=== PATIENT | male | born 1955 | race Caucasian/White ===

== ENCOUNTER 2016-06-06 15:54 | Emergency (ER) | payer OTHER ==
[~2016-06-06] VITALS: Ht 177.8 cm; Wt 83.9 kg
[~2016-06-06 15:54] MED LIST: ATIVAN1 MG PO; LORATADINE10 M2 PO; MOTRIN800 MG PO; NORCO 5/325 MG1 TAB PO; PROZAC20 M1 PO; PROZAC20 MG PO; VENTOLIN H0.09 MG/Ac IH; WELLBUTRIN75 M1 PO; ZESTRIL20 MG PO
[2016-06-06 16:22] VITALS: BP 137/63
[2016-06-06] MEDS ORDERED: NORVASC10 MG PO (16:26)
--- NOTE | 2016-06-06 16:29 | NUR ---
Patient taken to bed 05 via wheelchair per tech.
--- NOTE | 2016-06-06 16:45 | NUR ---
Dr. Ha evaluating patient at bedside.
--- NOTE | 2016-06-06 16:50 | NUR ---
PATIENT PRESENTS TO ED WITH POSSIBLE SEIZURES STARTING TODAY. PT STATES HE SHAKES UNCONROLLABLY; DENIES N/V/D; SKIN IS PINK/WARM/DRY; AAOX4 WITH EVEN AND STEADY GAIT; LUNGS CLEAR BL; HR EVEN AND REGULAR; PT DENIES ANY FEVER, CP, SOB, OR COUGH AT THIS TIME; PATIENT STATES PAIN OF 4/10 AT THIS TIME; VSS; PATIENT POSITIONED FOR COMFORT; HOB ELEVATED; BEDRAILS UP X2; BED DOWN. ER MD MADE AWARE OF PT STATUS.
--- NOTE | 2016-06-06 17:04 | NUR ---
CODYO, COOPERATIVE TAKEN TO CT BY SONIA BOURNE
--- NOTE | 2016-06-06 17:38 | NUR ---
DR NORMAN UPDATING THE PT
[2016-06-06 17:50] VITALS: BP 113/70
--- NOTE | 2016-06-06 17:50 | NUR ---
Patient discharged with v/s stable. Written and verbal after care instructions given and explained. Patient verbalized understanding. Ambulatory with steady gait. All questions addressed prior to discharge. Advised to follow up with PMD.
== END 2016-06-06 17:50 | disposition home or self-care (01) ==
LOC: MED 15:54
DX: G25.2 Other specified forms of tremor (principal); I10 Essential (primary) hypertension; J45.909 Unspecified asthma, uncomplicated; Z86.73 Personal history of transient ischemic attack (TIA), and cerebral infarction without residual deficits; Z91.018 Allergy to other foods; Z79.899 Other long term (current) drug therapy

== ENCOUNTER 2016-08-20 16:31 | Emergency (ER) | payer OTHER ==
[~2016-08-20] VITALS: Ht 177.8 cm; Wt 80.7 kg
[~2016-08-20 16:31] MED LIST changes: +NORVASC10 MG PO
[2016-08-20 17:49] VITALS: BP 103/68
[2016-08-20] MEDS ORDERED: KEPPRA500 MG PO (17:57)
[2016-08-20] MEDS ORDERED: DONEPEZIL HCL10 MG PO (17:57)
--- NOTE | 2016-08-20 18:03 | NUR ---
EKG REVIEWED BY DR. PORTILLO. OK TO WAIT IN THE LOBBY.NO DISTRESS
--- NOTE | 2016-08-20 18:54 | NUR ---
Patient to bed 05.
--- NOTE | 2016-08-20 19:00 | NUR ---
PT PRESENT TO ER WITH C/O BODY ACHE/LEG PAIN PAIN. CHEST PAIN TO LT. ARM DURING TRIAGE/STABBING LASTED FEW MINUTES. HX: CVA,GI PROB, EARLY ALZHEIMER,MINI STROKES; DENIES N/V/D; SKIN IS PINK/WARM/DRY; AAOX4 WITH EVEN AND STEADY GAIT; LUNGS CLEAR BL; HR EVEN AND REGULAR; PT DENIES ANY FEVER, CP, OR SOB AT THIS TIME; PATIENT STATES PAIN OF 4/10 AT THIS TIME; VSS; PATIENT POSITIONED FOR COMFORT; HOB ELEVATED; BEDRAILS UP X2; BED DOWN. ER MD MADE AWARE OF PT STATUS.
--- NOTE | 2016-08-20 19:08 | NUR ---
Sylvia strange in [facility] - 08/20/16 at 1912 by HANG REPORT GIVEN TO MARIA VICTORIA GUAJARDO
--- NOTE | 2016-08-20 19:16 | NUR ---
REPORT GIVEN TO MARIA VICTORIA SHAW
--- NOTE | 2016-08-20 19:20 | NUR ---
CAME AT BEDSIDE TO EVALUATE PATIENT.
--- NOTE | 2016-08-20 19:30 | NUR ---
ASSUMED CARE. RECEIVED ALERT, NOT IN ACUTE DISTRESS. VERBALIZED GENERALIZED BODY ACHE AND CHEST PAIN DESCRIBED SHARP. ALSO NOTED TO BE COUGHING BUT IS CHRONIC PER PATIENT. PA AT BEDSIDE EVALUATING PT. OTHERWISE VS STABLE, WILL CONTINUE TO MONITOR.
[2016-08-20] MEDS ORDERED: NACL 0.9% 1,000 ML IV ONE (19:40)
--- NOTE | 2016-08-20 19:52 | NUR ---
GAUGE 18 IV LINE ESTABLISHED TO THE RIGHT HAND. BLOOD ALSO DRAWN AND SENT TO THE LAB.
[2016-08-20] MEDS ORDERED: ALBUTEROL SULFATE/IPRATROPIU 3 ML SOL IH ONE (19:55)
--- NOTE | 2016-08-20 19:57 | NUR ---
IV FLUID NS 1 LITER @ 100 ML/HR.
--- NOTE | 2016-08-20 20:12 | NUR ---
PORTABLE CXR DONE.
--- NOTE | 2016-08-20 20:17 | NUR ---
BREATHING TREATMENT GIVEN BY RT.
--- NOTE | 2016-08-20 20:50 | NUR ---
MD BACK AT BEDSIDE TO RE-EVALUATE AND DISCUSS PLAN OF CARE WITH PT/FAMILY. PT. FOR DISCHARGE HOME.
--- NOTE | 2016-08-20 21:02 | NUR ---
Patient discharged with v/s stable. Written and verbal after care instructions given and explained. Patient alert, oriented and verbalized understanding of instructions. Ambulatory with steady gait. All questions addressed prior to discharge. ID band removed. Patient advised to follow up with PMD. Rx of AUGMENTIN,XANAX,ALBUTEROL INHALER given. Patient educated on indication of medication including possible reaction and side effects. Opportunity to ask questions provided and answered.
[2016-08-20 21:08] VITALS: BP 122/75
== END 2016-08-20 21:02 | disposition home or self-care (01) ==
LOC: MED 16:31
DX: J18.9 Pneumonia, unspecified organism (principal); H61.23 Impacted cerumen, bilateral; Z88.8 Allergy status to other drugs, medicaments and biological substances; J45.909 Unspecified asthma, uncomplicated; Z86.73 Personal history of transient ischemic attack (TIA), and cerebral infarction without residual deficits; I10 Essential (primary) hypertension
CPT/HCPCS: 36415; 71010; 80053; 85025; 85610; 85730; 94640; 96360; 99285; J7030; J7620

== ENCOUNTER 2016-12-04 13:50 | Outpatient (CLI) | payer OTHER ==
[~2016-12-04 13:50] MED LIST changes: +ALBU0.0912 IH; +AMLO10TA PO; -ATIVAN1 MG PO; +BUPR75TA PO; +DONE10TA91 PO; +FLUO-387 PO; +HYDR-4446 PO; +IBUP-974 PO; +KEP500 PO; +LORA10OD44 PO; -LORATADINE10 M2 PO; -MOTRIN800 MG PO; -NORCO 5/325 MG1 TAB PO; -NORVASC10 MG PO; -PROZAC20 M1 PO; -PROZAC20 MG PO; -VENTOLIN H0.09 MG/Ac IH; -WELLBUTRIN75 M1 PO; -ZESTRIL20 MG PO
[2016-12-04 14:58] LABS: BASOPHILS # (AUTO) 0.1 K/uL (0.00-0.22); EOSINOPHILS # (AUTO) 0.5 K/uL (0-0.4); HEMATOCRIT 43.5 % (36-52); HEMOGLOBIN 14.8 g/dL (12.0-18.0); LYMPHOCYTES # (AUTO) 0.7 K/uL (2.0-11.5); MEAN CORPUSCULAR HEMOGLOBIN 30 pg (27-31); MEAN CORPUSCULAR HGB CONC 34 g/dL (33-37); MEAN CORPUSCULAR VOLUME 88 fL (80-94); MONOCYTES # (AUTO) 0.5 K/uL (0.8-1.0); NEUTROPHILS # (AUTO) 3.3 K/uL (1.8-7.7); PLATELET COUNT (AUTO) 139 K/uL (140-450); RED BLOOD CELL COUNT(AUTO) 4.94 MIL/uL (4.20-6.10); RED CELL DISTRIBUTION WIDTH 11.6 % (11.6-13.7); WHITE BLOOD COUNT (AUTO) 5.1 K/uL (4.8-10.8)
[2016-12-04 15:16] LABS: ANION GAP 11.5 (8-16); CALCIUM 8.7 mg/dL (8.5-10.1); CARBON DIOXIDE 27.3 mmol/L (21-32); CREATININE 0.8 mg/dL (0.7-1.3); POTASSIUM 3.8 mmol/L (3.5-5.1)
[2016-12-04 15:17] LABS: PARTIAL THROMBOPLASTIN TIME 26.4 secs (22-35.6); PROTHROMBIN TIME 10.6 secs (10.8-13.4)
== END 2016-12-04 19:23 | disposition home or self-care (01) ==
LOC: MRD 13:50
PROVIDERS: ATTEND Family Medicine
DX: J44.9 Chronic obstructive pulmonary disease, unspecified (principal)
CPT/HCPCS: 36415; 71010; 80048; 85025; 85610; 85730; 93005

== ENCOUNTER 2017-01-04 16:02 | Inpatient (IN) | payer OTHER ==
[~2017-01-04] VITALS: Ht 177.8 cm; Wt 78.9 kg
[~2017-01-04 16:02] MED LIST changes: +ACET-8386 PO; -HYDR-4446 PO
[2017-01-04 16:06] VITALS: BP 155/85
[2017-01-04] MEDS ORDERED: ASPIRIN 325 MG TAB PO ONE (16:20)
[2017-01-04 16:59] LABS: BASOPHILS # (AUTO) 0.1 K/uL (0.00-0.22); BASOPHILS % (AUTO) 0.7 % (0.0-2.0); EOSINOPHILS # (AUTO) 0.4 K/uL (0-0.4); EOSINOPHILS % (AUTO) 2.4 % (0.0-4.0); HEMATOCRIT 48.6 % (36-52); HEMOGLOBIN 15.8 g/dL (12.0-18.0); LYMPHOCYTES # (AUTO) 0.4 K/uL (2.0-11.5); LYMPHOCYTES % (AUTO) 2.5 % (20.5-51.1); MEAN CORPUSCULAR HEMOGLOBIN 29 pg (27-31); MEAN CORPUSCULAR HGB CONC 33 g/dL (33-37); MEAN CORPUSCULAR VOLUME 90 fL (80-94); MONOCYTES # (AUTO) 0.1 K/uL (0.8-1.0); MONOCYTES % (AUTO) 0.6 % (1.7-9.3); NEUTROPHILS # (AUTO) 15.3 K/uL (1.8-7.7); NEUTROPHILS % (AUTO) 93.8 % (42.2-75.2); PLATELET COUNT (AUTO) 161 K/uL (140-450); RED BLOOD CELL COUNT(AUTO) 5.37 MIL/uL (4.20-6.10); WHITE BLOOD COUNT (AUTO) 16.3 K/uL (4.8-10.8)
[2017-01-04 17:15] LABS: ANION GAP 9.9 (8-16); CARBON DIOXIDE 27.9 mmol/L (21-32); CREATININE 0.9 mg/dL (0.7-1.3); POTASSIUM 3.8 mmol/L (3.5-5.1)
[2017-01-04 17:21] LABS: ALBUMIN 3.7 g/dL (3.4-5.0); TOTAL BILIRUBIN 0.6 mg/dL (0.0-1.0)
[2017-01-04 17:23] LABS: PROTHROMBIN TIME 10.5 secs (10.8-13.4)
[2017-01-04] MEDS ORDERED: HYDROmorphone 1 MG/ML AMP IM ONE (17:30)
[2017-01-04 18:21] LABS: APPEARANCE,URINE CLEAR (CLEAR); BILIRUBIN,URINE NEGATIVE (NEGATIVE); BLOOD, URINE NEGATIVE (NEGATIVE); COLOR,URINE YELLOW (YELLOW); LEUKOCYTE ESTERASE ,URINE NEGATIVE (NEGATIVE); NITRITE, URINE NEGATIVE (NEGATIVE); UGLUCOSE NEGATIVE (NEGATIVE)
[2017-01-04] MEDS ORDERED: ONDANSETRON 4 MG/2 ML VIAL IVP PRN (18:40)
[2017-01-04] MEDS ORDERED: LORazepam 2 MG/ML VIAL IVP ONE (18:45)
[2017-01-04 19:12] VITALS: BP 159/96
[2017-01-04] MEDS ORDERED: CARVEDILOL 6.25 MG TAB PO SCH (19:20)
[2017-01-04] MEDS: MORPHINE SULFATE 2 MG/ML SYR IVP PRN (21:02)
[2017-01-04] MEDS ORDERED: cloNIDine 0.1 MG TAB PO PRN (21:15)
[2017-01-04] MEDS ORDERED: LABETALOL 100 MG/20 ML VIAL IV PRN (21:30)
[2017-01-04] MEDS ORDERED: LABETALOL 100 MG/20 ML VIAL ONE (21:52)
[2017-01-04] MEDS: TEMAZEPAM 15 MG CAP PO PRN (23:10)
[2017-01-04] MEDS: MORPHINE SULFATE 4 MG/ML SYR IVP PRN (23:29)
[2017-01-05] VITALS: BP 147/96
[2017-01-05 02:17] LABS: CREATINE KINASE MB 0.4 ng/mL (0-3.6)
[2017-01-05] MEDS: MORPHINE SULFATE 4 MG/ML SYR IVP PRN ×5 (03:45→21:30)
[2017-01-05 04:00] VITALS: BP 141/90
[2017-01-05 08:00] VITALS: BP 138/79
[2017-01-05] MEDS: CARVEDILOL 6.25 MG TAB PO SCH (08:50)
[2017-01-05] MEDS: ASPIRIN 81 MG TAB.CHEW PO SCH (08:57)
[2017-01-05 09:40] LABS: HEMATOCRIT 55.8 % (36-52); MEAN CORPUSCULAR HEMOGLOBIN 29 pg (27-31); MEAN CORPUSCULAR HGB CONC 32 g/dL (33-37); MEAN CORPUSCULAR VOLUME 91 fL (80-94); PLATELET COUNT (AUTO) 158 K/uL (140-450); RED BLOOD CELL COUNT(AUTO) 6.15 MIL/uL (4.20-6.10); RED CELL DISTRIBUTION WIDTH 12.2 % (11.6-13.7); WHITE BLOOD COUNT (AUTO) 29.5 K/uL (4.8-10.8)
[2017-01-05 10:05] LABS: LYMPHOCYTES % (MANUAL) 2 % (20-46); MONOCYTES % (MANUAL) 4 % (5-12)
[2017-01-05 10:09] LABS: ANION GAP 9.1 (8-16); CARBON DIOXIDE 30.9 mmol/L (21-32); TOTAL BILIRUBIN 1.2 mg/dL (0.0-1.0)
[2017-01-05 10:20] LABS: CREATININE 0.8 mg/dL (0.7-1.3)
[2017-01-05 10:21] LABS: CREATINE KINASE MB 0.3 ng/mL (0-3.6)
[2017-01-05 10:26] LABS: ALBUMIN 3.3 g/dL (3.4-5.0)
[2017-01-05 12:00] VITALS: BP 125/78
[2017-01-05] MEDS: LORazepam 0.5 MG TAB PO PRN (13:23)
[2017-01-05 16:31] VITALS: BP 130/81
[2017-01-05 20:00] VITALS: BP 134/81
[2017-01-05] MEDS: TEMAZEPAM 15 MG CAP PO PRN (22:31)
[2017-01-06] VITALS: BP 127/77
[2017-01-06] MEDS: MORPHINE SULFATE 2 MG/ML SYR IVP PRN (01:49)
[2017-01-06 04:00] VITALS: BP 130/86
[2017-01-06] MEDS: MORPHINE SULFATE 4 MG/ML SYR IVP PRN ×4 (06:26→20:10)
[2017-01-06 08:00] VITALS: BP 149/93
[2017-01-06] MEDS: ASPIRIN 81 MG TAB.CHEW PO SCH (08:16)
[2017-01-06] MEDS: CARVEDILOL 6.25 MG TAB PO SCH (08:24)
[2017-01-06 09:50] LABS: ALBUMIN 2.5 g/dL (3.4-5.0); ANION GAP 9.8 (8-16); CARBON DIOXIDE 29.2 mmol/L (21-32); CREATININE 0.8 mg/dL (0.7-1.3); TOTAL BILIRUBIN 1.2 mg/dL (0.0-1.0)
[2017-01-06 12:00] VITALS: BP 131/83
[2017-01-06 16:00] VITALS: BP 125/72
[2017-01-06 20:00] VITALS: BP 124/74
[2017-01-06] MEDS: LORazepam 0.5 MG TAB PO PRN (20:48)
[2017-01-07] VITALS: BP 124/79
[2017-01-07 04:00] VITALS: BP 132/96
[2017-01-07 06:51] LABS: HEMATOCRIT 44.9 % (36-52); HEMOGLOBIN 15.1 g/dL (12.0-18.0); MEAN CORPUSCULAR HEMOGLOBIN 30 pg (27-31); MEAN CORPUSCULAR HGB CONC 34 g/dL (33-37); MEAN CORPUSCULAR VOLUME 89 fL (80-94); PLATELET COUNT (AUTO) 99 K/uL (140-450); RED BLOOD CELL COUNT(AUTO) 5.06 MIL/uL (4.20-6.10); RED CELL DISTRIBUTION WIDTH 12.4 % (11.6-13.7); WHITE BLOOD COUNT (AUTO) 14.2 K/uL (4.8-10.8)
[2017-01-07 07:54] LABS: LYMPHOCYTES % (MANUAL) 2 % (20-46); MONOCYTES % (MANUAL) 3 % (5-12)
[2017-01-07 08:00] VITALS: BP 162/91
[2017-01-07] MEDS: ASPIRIN 81 MG TAB.CHEW PO SCH (08:46)
[2017-01-07] MEDS: CARVEDILOL 6.25 MG TAB PO SCH (08:46)
[2017-01-07] MEDS: MORPHINE SULFATE 4 MG/ML SYR IVP PRN ×2 (10:08→15:18)
[2017-01-07 12:00] VITALS: BP 132/85
[2017-01-07 16:00] VITALS: BP 150/85
[2017-01-07 19:58] VITALS: BP 125/76
[2017-01-07] MEDS: MORPHINE SULFATE 2 MG/ML SYR IVP PRN (20:00)
[2017-01-08] VITALS: BP 132/81
[2017-01-08] MEDS: MORPHINE SULFATE 2 MG/ML SYR IVP PRN (00:49)
[2017-01-08] MEDS: LORazepam 0.5 MG TAB PO PRN (03:52)
[2017-01-08 04:00] VITALS: BP 138/73
[2017-01-08] MEDS: MORPHINE SULFATE 4 MG/ML SYR IVP PRN ×3 (05:46→14:34)
[2017-01-08 06:03] LABS: HEMATOCRIT 41.5 % (36-52); HEMOGLOBIN 14.1 g/dL (12.0-18.0); MEAN CORPUSCULAR HEMOGLOBIN 30 pg (27-31); MEAN CORPUSCULAR HGB CONC 34 g/dL (33-37); MEAN CORPUSCULAR VOLUME 89 fL (80-94); PLATELET COUNT (AUTO) 107 K/uL (140-450); RED BLOOD CELL COUNT(AUTO) 4.65 MIL/uL (4.20-6.10); RED CELL DISTRIBUTION WIDTH 12.2 % (11.6-13.7); WHITE BLOOD COUNT (AUTO) 11.1 K/uL (4.8-10.8)
[2017-01-08] MEDS ORDERED: ALUMINUM HYD/MAG/SIMETHICONE 30 ML UDC PO PRN (06:20)
[2017-01-08 06:36] LABS: ALBUMIN 2.3 g/dL (3.4-5.0); ANION GAP 11.3 (8-16); CARBON DIOXIDE 28.3 mmol/L (21-32); CREATININE 0.6 mg/dL (0.7-1.3); POTASSIUM 3.6 mmol/L (3.5-5.1)
[2017-01-08 07:08] LABS: EOSINOPHILS % (MANUAL) 1 % (0-4); LYMPHOCYTES % (MANUAL) 3 % (20-46); MONOCYTES % (MANUAL) 6 % (5-12)
[2017-01-08 07:41] VITALS: BP_SYST 123; BP_SYST 149; BP_DIAS 71; BP_DIAS 88
[2017-01-08] MEDS: ASPIRIN 81 MG TAB.CHEW PO SCH (08:34)
[2017-01-08] MEDS: CARVEDILOL 6.25 MG TAB PO SCH (08:34)
[2017-01-08] MEDS: FAMOTIDINE 20 MG TAB PO SCH ×2 (08:34→20:48)
[2017-01-08 11:47] VITALS: BP 139/79
[2017-01-08 16:00] VITALS: BP 141/85
[2017-01-08 20:00] VITALS: BP 135/76
[2017-01-08] MEDS: levETIRAcetam 500 MG TAB PO SCH (20:47)
[2017-01-08] MEDS: GABAPENTIN 300 MG CAP PO SCH (20:48)
[2017-01-08] MEDS: oxyCODONE 5 MG TAB PO SCH (20:49)
[2017-01-09] VITALS (7 sets, daily range): BP systolic 101–138; BP diastolic 66–73
[2017-01-09] MEDS: TEMAZEPAM 15 MG CAP PO PRN (01:13)
[2017-01-09] MEDS: oxyCODONE 5 MG TAB PO SCH ×2 (05:52→13:29)
[2017-01-09 06:47] LABS: ALBUMIN 2.1 g/dL (3.4-5.0); ANION GAP 8.4 (8-16); CARBON DIOXIDE 30.4 mmol/L (21-32); CREATININE 0.6 mg/dL (0.7-1.3); POTASSIUM 3.8 mmol/L (3.5-5.1); TOTAL BILIRUBIN 0.7 mg/dL (0.0-1.0)
[2017-01-09 07:28] LABS: HEMATOCRIT 38.3 % (36-52); HEMOGLOBIN 12.9 g/dL (12.0-18.0); MEAN CORPUSCULAR HEMOGLOBIN 30 pg (27-31); MEAN CORPUSCULAR HGB CONC 34 g/dL (33-37); MEAN CORPUSCULAR VOLUME 91 fL (80-94); PLATELET COUNT (AUTO) 72 K/uL (140-450); RED BLOOD CELL COUNT(AUTO) 4.24 MIL/uL (4.20-6.10); RED CELL DISTRIBUTION WIDTH 12.3 % (11.6-13.7); WHITE BLOOD COUNT (AUTO) 9.4 K/uL (4.8-10.8)
[2017-01-09 07:32] LABS: LYMPHOCYTES % (MANUAL) 7 % (20-46); MONOCYTES % (MANUAL) 3 % (5-12)
[2017-01-09] MEDS ORDERED: buPROPion 75 MG TAB PO SCH ×2 (09:00→18:30)
[2017-01-09] MEDS ORDERED: FLUoxetine 20 MG CAP PO SCH (09:00)
[2017-01-09] MEDS: ASPIRIN 81 MG TAB.CHEW PO SCH (09:00)
[2017-01-09] MEDS ORDERED: cefTRIAXone 1,000 MG VIAL ONE (09:55)
[2017-01-09] MEDS: levETIRAcetam 500 MG TAB PO SCH ×2 (09:56→20:35)
[2017-01-09] MEDS: GABAPENTIN 300 MG CAP PO SCH ×2 (09:56→20:35)
[2017-01-09] MEDS: MORPHINE SULFATE 2 MG/ML SYR IVP PRN ×2 (09:56→22:11)
[2017-01-09] MEDS: FAMOTIDINE 20 MG TAB PO SCH ×2 (09:57→20:35)
[2017-01-09] MEDS: DONEPEZIL 10 MG TAB PO SCH (09:57)
[2017-01-09] MEDS: CARVEDILOL 6.25 MG TAB PO SCH (09:57)
[2017-01-09] MEDS: oxyCODONE 5 MG TAB PO PRN (18:27)
[2017-01-10] VITALS: BP 131/74
[2017-01-10] MEDS: LORazepam 0.5 MG TAB PO PRN ×2 (01:05→11:02)
[2017-01-10] MEDS: oxyCODONE 5 MG TAB PO PRN ×3 (02:33→14:06)
[2017-01-10 04:00] VITALS: BP 117/70
[2017-01-10 07:39] VITALS: BP 127/70
[2017-01-10] MEDS: DONEPEZIL 10 MG TAB PO SCH (08:21)
[2017-01-10] MEDS: levETIRAcetam 500 MG TAB PO SCH (08:21)
[2017-01-10] MEDS: CARVEDILOL 6.25 MG TAB PO SCH (08:21)
[2017-01-10] MEDS: ASPIRIN 81 MG TAB.CHEW PO SCH (08:21)
[2017-01-10] MEDS: GABAPENTIN 300 MG CAP PO SCH (08:22)
[2017-01-10] MEDS: FAMOTIDINE 20 MG TAB PO SCH (08:22)
[2017-01-10] MEDS ORDERED: buPROPion 75 MG TAB PO SCH (09:00)
[2017-01-10 12:00] VITALS: BP 126/96
[2017-01-10] MEDS ORDERED: IBUPROFEN 800 MG TAB PO PRN (12:50)
[2017-01-10] MEDS ORDERED: NON-FORMULARY ITEM (Loratadine 10 MG) PO PRN (12:50)
[2017-01-10] MEDS ORDERED: ALBUTEROL HFA MDI 90 MCG/ACTUATION 8 GM INH PRN (12:50)
[2017-01-10] MEDS ORDERED: LORATADINE 10 MG TAB PO PRN (13:10)
[2017-01-10] MEDS ORDERED: CEPH250C16 PO (13:49)
[2017-01-10] MEDS ORDERED: ACET-5629 PO (13:49)
[2017-01-11] MEDS ORDERED: amLODIPine 5 MG TAB PO SCH (09:00)
== END 2017-01-10 14:30 | disposition home or self-care (01) | DRG 720 ==
LOC: MED 16:02 → MTU 18:44
PROVIDERS: ADMIT Hospitalist; ATTEND Hospitalist
DX: A41.9 Sepsis, unspecified organism (principal); K80.00 Calculus of gallbladder with acute cholecystitis without obstruction; F03.90 Unspecified dementia, unspecified severity, without behavioral disturbance, psychotic disturbance, mood disturbance, and anxiety; I11.9 Hypertensive heart disease without heart failure; M48.02 Spinal stenosis, cervical region; R07.89 Other chest pain; M54.12 Radiculopathy, cervical region; G89.4 Chronic pain syndrome; F32.9 Major depressive disorder, single episode, unspecified; F41.9 Anxiety disorder, unspecified; G40.909 Epilepsy, unspecified, not intractable, without status epilepticus; R07.81 Pleurodynia; J45.909 Unspecified asthma, uncomplicated; R20.0 Anesthesia of skin; Z86.73 Personal history of transient ischemic attack (TIA), and cerebral infarction without residual deficits; Z79.899 Other long term (current) drug therapy
CPT/HCPCS: 36415; 36600; 71010; 71270; 76700; 78445; 80053; 81003; 82550; 82553; 82803; 83605; 83690; 83880; 84484; 85025; 85610; 85730; 87040; 87081; 93005; 96372; 96374; 99285; J0696; J1170; J2060; J2270; J3490; J7030; J7060; Q0092; Q9967

== ENCOUNTER 2018-06-24 17:56 | Emergency (ER) | payer OTHER ==
[~2018-06-24] VITALS: Ht 177.8 cm; Wt 70.8 kg
[~2018-06-24 17:56] MED LIST changes: +ACET-5629 PO; -ACET-8386 PO; +CEPH250C16 PO; +DONE10TA37 PO; -DONE10TA91 PO
[2018-06-24 18:00] VITALS: BP 95/56
[2018-06-24] MEDS ORDERED: ALBUTEROL SULFATE/IPRATROPIU 3 ML SOL IH ONE ×2 (18:10→19:30)
--- NOTE | 2018-06-24 18:16 | NUR ---
PT PRESENT TO ED W/ C/O SOB,MUSCLE TWITCHING X KLAST NOC; PT STATES HE TOOK HIS BREATHING TX AT HOME OFFER NO RELIEF;PRODUCTIVE COUGH NOTED; DENIES ANY FEVER; NO RETRACTION OR ACCESSORY MUSCLES USED.ALL MONITORS;SAFETY PRECAUTION INSTITUTED; ER NOTIFIED.
--- NOTE | 2018-06-24 19:05 | NUR ---
PT SITTING UP IN BED, PT RECIEVED A BREATHING TREATMENT. PT TOLERATED WELL.
[2018-06-24] MEDS ORDERED: methylPREDNISolone SS 125 MG/2 ML VIAL IVP ONE (19:30)
[2018-06-24] MEDS ORDERED: NACL 0.9% 1,000 ML IV ONE (19:50)
--- NOTE | 2018-06-24 20:30 | NUR ---
FLU SWAB DONE, SENT TO LAB
[2018-06-24 20:31] LABS: BASOPHILS # (AUTO) 0.1 K/uL (0.00-0.22); BASOPHILS % (AUTO) 1.7 % (0.0-2.0); EOSINOPHILS # (AUTO) 0.9 K/uL (0-0.4); EOSINOPHILS % (AUTO) 21.8 % (0.0-4.0); HEMATOCRIT 36.7 % (36-52); HEMOGLOBIN 11.9 g/dL (12.0-18.0); LYMPHOCYTES # (AUTO) 0.7 K/uL (2.0-11.5); LYMPHOCYTES % (AUTO) 16.1 % (20.5-51.1); MEAN CORPUSCULAR HEMOGLOBIN 26 pg (27-31); MEAN CORPUSCULAR HGB CONC 32 g/dL (33-37); MEAN CORPUSCULAR VOLUME 81.5 fL (80-94); MONOCYTES # (AUTO) 0.6 K/uL (0.8-1.0); MONOCYTES % (AUTO) 14.4 % (1.7-9.3); PLATELET COUNT (AUTO) 125 K/uL (140-450); RED CELL DISTRIBUTION WIDTH 15.3 % (11.6-13.7); WHITE BLOOD COUNT (AUTO) 4.3 K/uL (4.8-10.8)
--- NOTE | 2018-06-24 20:48 | NUR ---
PT RECIEVED ANOTHER TREATMENT. PT TOLERATED WELL.
[2018-06-24 20:50] LABS: ALBUMIN 3.6 g/dL (3.4-5.0); CARBON DIOXIDE 30.7 mmol/L (21-32); POTASSIUM 3.7 mmol/L (3.5-5.1); TOTAL BILIRUBIN 0.5 mg/dL (0.0-1.0)
[2018-06-24] MEDS ORDERED: ACETAMINOPHEN EXTRA STRENGTH 500 MG TAB PO ONE (21:00)
[2018-06-24] MEDS ORDERED: LORazepam 1 MG TAB PO ONE (21:05)
[2018-06-24 21:50] VITALS: BP 116/57
--- NOTE | 2018-06-24 21:50 | NUR ---
Patient discharged with v/s stable. Written and verbal after care instructions given and explained. Patient alert, oriented and verbalized understanding of instructions. Wheel Chair Assisted with to car. All questions addressed prior to discharge. ID band removed. Patient advised to follow up with PMD. Rx of Z-pack, prednisone, Symbicort, and Singulair given. Patient educated on indication of medication including possible reaction and side effects. Opportunity to ask questions provided and answered.
--- NOTE | 2018-06-26 06:41 | NUR ---
Late entry. Confirmed with RN that 1000 ml 0.9 NS IV completed at 2114.
== END 2018-06-24 21:50 | disposition home or self-care (01) ==
LOC: MED 17:56
DX: J45.901 Unspecified asthma with (acute) exacerbation (principal); I10 Essential (primary) hypertension; G40.909 Epilepsy, unspecified, not intractable, without status epilepticus; F03.90 Unspecified dementia, unspecified severity, without behavioral disturbance, psychotic disturbance, mood disturbance, and anxiety; Z86.73 Personal history of transient ischemic attack (TIA), and cerebral infarction without residual deficits; Z88.8 Allergy status to other drugs, medicaments and biological substances
CPT/HCPCS: 36415; 71045; 80053; 85025; 87804; 94640; 96374; 99284; J2930; J7030; J7620; Q0092